=== PATIENT | female | born 1955 | race Caucasian/White ===

== ENCOUNTER → 2016-10-15 | Outpatient (CLI) | payer MEDICAID ==
[~2016-10-15] MED LIST: ACET325T14 PO; BIOTIN PO; CALCIUM PO; DIAZ2TAB3 PO; FAMO-79 PO; GUAI5SYR PO; HYDR-3240 PO; IBUP100T6 PO; IBUP800T PO; IBUPROFEN PO; LORA10TA3 PO; LORA1TAB PO; LORATADINE PO; METO25TA35 PO; MORP30TA PO; MULTIVITAMIN PO; OMEP40CA6 PO; ONDA8TAB9 PO; OXYC1TAB8 PO; PARO10TA3 PO; PEPCID PO; PRED10TA PO; STOOL SOFTENER PO; SUCR1ORA2 PO; TRAM50TA2 PO; VITAMIN D3 PO
== END | disposition home or self-care (01) ==
LOC: PETCFH 13:05
PROVIDERS: ATTEND Internal Medicine Hematology & Oncology
DX: C34.91 Malignant neoplasm of unspecified part of right bronchus or lung (principal); J92.9 Pleural plaque without asbestos
CPT/HCPCS: 78815; A9552

== ENCOUNTER 2016-10-16 09:48 | Day surgery (SDC) | payer MEDICAID ==
[~2016-10-16] VITALS: Ht 167.6 cm; Wt 53.8 kg
[2016-10-16 10:27] VITALS: BP 116/79
[2016-10-16] MEDS ORDERED: SODIUM CHLORIDE 0.9% 1,000 ML IV SCH (10:29)
[2016-10-16] MEDS ORDERED: MIDAZOLAM 1 MG/ML, 5ML ONE (11:14)
[2016-10-16] MEDS ORDERED: FENTANYL PF 100 MCG/2ML ONE (11:14)
[2016-10-16] MEDS ORDERED: NALOXONE 1 MG/ML, 2ML ONE (11:14)
[2016-10-16] MEDS ORDERED: FLUMAZENIL 0.1 MG/1 ML, 5ML ONE (11:15)
[2016-10-16] MEDS ORDERED: LIDOCAINE 1%, 20ML ONE (11:21)
== END 2016-10-16 12:15 ==
LOC: OUT 09:48
PROVIDERS: ATTEND Internal Medicine Hematology & Oncology
DX: R59.9 Enlarged lymph nodes, unspecified (principal); Z85.118 Personal history of other malignant neoplasm of bronchus and lung; Z87.891 Personal history of nicotine dependence
CPT/HCPCS: 38505; 76942; 88305; J3490; J7030; 88341; 88342; J2250; J3010; G0461; J2310

== ENCOUNTER → 2017-04-02 | Outpatient (CLI) | payer MEDICARE, MEDICAID ==
[~2017-04-02] MED LIST changes: +IBUP-1223 PO; -IBUP800T PO; -SUCR1ORA2 PO; +SUCR1ORA5 PO
== END | disposition home or self-care (01) ==
LOC: CFH 15:12
PROVIDERS: ATTEND Nurse Practitioner Primary Care
DX: M48.02 Spinal stenosis, cervical region (principal); M47.22 Other spondylosis with radiculopathy, cervical region; M50.123 Cervical disc disorder at C6-C7 level with radiculopathy
CPT/HCPCS: 72050; 72141

== ENCOUNTER → 2017-06-27 | Outpatient (CLI) | payer MEDICARE, MEDICAID ==
[~2017-06-27] MED LIST changes: +OMNIPAQUE 350 MG/ML, 75ML BOTTLE ONE
== END | disposition home or self-care (01) ==
LOC: CFH 09:20
PROVIDERS: ATTEND Internal Medicine Hematology & Oncology
DX: J90 Pleural effusion, not elsewhere classified (principal); R59.9 Enlarged lymph nodes, unspecified; C34.91 Malignant neoplasm of unspecified part of right bronchus or lung
CPT/HCPCS: 71260; Q9967

== ENCOUNTER → 2017-07-31 | Outpatient (CLI) | payer MEDICARE, MEDICAID ==
[~2017-07-31] MED LIST changes: -OMNIPAQUE 350 MG/ML, 75ML BOTTLE ONE
== END | disposition home or self-care (01) ==
LOC: CFH 13:54
PROVIDERS: ATTEND Nurse Practitioner Critical Care Medicine
DX: M51.26 Other intervertebral disc displacement, lumbar region (principal); M51.37 Other intervertebral disc degeneration, lumbosacral region; M48.061 Spinal stenosis, lumbar region without neurogenic claudication
CPT/HCPCS: 72110; 72158; 82565

== ENCOUNTER → 2018-01-08 | Outpatient (CLI) | payer MEDICARE, MEDICAID ==
[~2018-01-08] MED LIST changes: +OMNIPAQUE 350 MG/ML, 75ML BOTTLE ONE
== END | disposition home or self-care (01) ==
LOC: CFH 08:21
PROVIDERS: ATTEND Internal Medicine Hematology & Oncology
DX: I65.01 Occlusion and stenosis of right vertebral artery (principal); R59.0 Localized enlarged lymph nodes; C34.91 Malignant neoplasm of unspecified part of right bronchus or lung
CPT/HCPCS: 71260; 82565; Q9967

== ENCOUNTER → 2018-02-10 | Outpatient (CLI) | payer MEDICARE, MEDICAID ==
[~2018-02-10] MED LIST changes: +LIDOCAINE-MPF 1%, 5ML ONE; -OMNIPAQUE 350 MG/ML, 75ML BOTTLE ONE
== END | disposition home or self-care (01) ==
LOC: RAD 08:28
PROVIDERS: ATTEND Internal Medicine Hematology & Oncology
DX: C34.91 Malignant neoplasm of unspecified part of right bronchus or lung (principal)
CPT/HCPCS: 32555; 87070; 87077; 87147; 87186; 87205; 88112; 88305

== ENCOUNTER 2018-02-14 10:17 | Inpatient (IN) | payer MEDICARE, MEDICAID ==
[~2018-02-14] VITALS: Ht 165.1 cm; Wt 50.4 kg
[~2018-02-14 10:17] MED LIST changes: -LIDOCAINE-MPF 1%, 5ML ONE
[2018-02-14] MEDS ORDERED: HYDR-3245 PO (11:46)
[2018-02-14] MEDS ORDERED: ATOR-2 PO (11:46)
[2018-02-14] MEDS ORDERED: SODIUM CHLORIDE FLUSH 10ML SYR IVF ONE (12:00)
[2018-02-14] MEDS ORDERED: LIDOCAINE 1%, 10ML INFIL ONE (12:00)
[2018-02-14 12:12] LABS: BASOPHILS # (AUTO) 0.02 x10^3/uL (0-0.1); BASOPHILS % (AUTO) 0 % (0-1); EOSINOPHILS # (AUTO) 0.17 x10^3/uL (0-0.4); EOSINOPHILS % (AUTO) 2 % (1-7); LYMPHOCYTES # (AUTO) 0.38 x10^3/uL (1-3.4); LYMPHOCYTES % (AUTO) 5 % (22-44); MD NO; MEAN CORPUSCULAR HEMOGLOBIN 23.8 pg (27.0-34.8); MEAN CORPUSCULAR HGB CONC 31.6 g/dL (32.4-35.8); MEAN CORPUSCULAR VOLUME 75.5 fL (80-100); MEAN PLATELET VOLUME 7.5 fL (7.4-10.4); MONOCYTES # (AUTO) 0.46 x10^3/uL (0.2-0.8); MONOCYTES % (AUTO) 6 % (2-9); NEUTROPHILS # (AUTO) 6.42 x10^3/uL (1.8-6.8); NEUTROPHILS % (AUTO) 86 % (42-75); PLATELET COUNT 316 x10^3/uL (130-400); RED BLOOD COUNT 4.19 x10^6/uL (3.82-5.3); RED CELL DISTRIBUTION WIDTH 17.7 % (9.6-15.2)
[2018-02-14] MEDS ORDERED: LIDOCAINE-MPF 1%, 5ML ONE (12:12)
[2018-02-14 12:18] LABS: INTERNATIONAL NORMALIZED RATIO 1.08 (0.93-1.1); PROTHROMBIN TIME 11.4 Seconds (9.6-11.5)
[2018-02-14 12:21] LABS: ALBUMIN 2.8 g/dL (3.4-5.0); ANION GAP 10 mmol/L (5-15); CALCIUM 9.5 mg/dL (8.5-10.1); CHLORIDE 105 mmol/L (98-107)
[2018-02-14 12:25] LABS: ALANINE AMINOTRANSFERASE 15 U/L (12-78); ALKALINE PHOSPHATASE 132 U/L (45-117); BILIRUBIN,TOTAL 0.2 mg/dL (0.2-1.0); TOTAL PROTEIN 8.7 g/dL (6.4-8.2)
[2018-02-14] MEDS ORDERED: CEFAZOLIN PMX 1GM/50ML 50 ML IV ONE (14:00)
[2018-02-14] MEDS ORDERED: CEFAZOLIN PMX 1GM/50ML 50 ML ONE (14:38)
[2018-02-14] MEDS ORDERED: BISACODYL 10 MG SUPP PR PRN (15:00)
[2018-02-14] MEDS ORDERED: POLYETHYLENE GLYCOL 17 GM PACKET PO PRN (15:00)
[2018-02-14] MEDS ORDERED: DOCUSATE 100 MG CAPSULE PO PRN (15:00)
[2018-02-14] MEDS ORDERED: ONDANSETRON 2MG/ML, 2ML IVPush PRN (15:00)
[2018-02-14] MEDS ORDERED: ENALAPRILAT 1.25 MG/ML, 2ML IVPush PRN (15:00)
[2018-02-14] MEDS ORDERED: ACETAMINOPHEN 325 MG TABLET PO PRN (15:00)
[2018-02-14] MEDS ORDERED: BIOTIN 3000 MCG PO SCH (16:00)
[2018-02-14] MEDS: SODIUM CHLORIDE 0.9% 1,000 ML IV SCH (16:17)
[2018-02-14] MEDS: HYDROcodone/APAP 10/325 MG TABLET PO SCH ×2 (16:17→20:01)
[2018-02-14 17:24] VITALS: BP 107/74
[2018-02-14] MEDS: CEFAZOLIN PMX 2GM/50ML 50 ML IVPB SCH (17:37)
[2018-02-14] MEDS ORDERED: CEFAZOLIN 2,000 MG in SODIUM CHLORIDE 0.9% 50 ML IV SCH (18:00)
[2018-02-14 19:36] VITALS: BP 110/74
[2018-02-14] MEDS: CALCIUM CARBONATE 500 MG TABLET PO SCH (20:01)
[2018-02-14] MEDS: ATORVASTATIN 80 MG TABLET PO SCH (20:01)
[2018-02-15] MEDS: CEFAZOLIN PMX 2GM/50ML 50 ML IVPB SCH ×3 (01:14→17:00)
[2018-02-15 01:57] VITALS: BP 114/81
[2018-02-15 05:25] LABS: ANION GAP 6 mmol/L (5-15); CALCIUM 9.1 mg/dL (8.5-10.1); CHLORIDE 108 mmol/L (98-107); CREATININE 0.64 mg/dL (0.55-1.02)
[2018-02-15] MEDS: SODIUM CHLORIDE 0.9% 1,000 ML IV SCH (05:40)
[2018-02-15 05:44] LABS: BASOPHILS # (AUTO) 0.01 x10^3/uL (0-0.1); BASOPHILS % (AUTO) 0 % (0-1); EOSINOPHILS # (AUTO) 0.23 x10^3/uL (0-0.4); EOSINOPHILS % (AUTO) 4 % (1-7); LYMPHOCYTES # (AUTO) 0.38 x10^3/uL (1-3.4); LYMPHOCYTES % (AUTO) 7 % (22-44); MD NO; MEAN CORPUSCULAR HEMOGLOBIN 24.5 pg (27.0-34.8); MEAN CORPUSCULAR HGB CONC 32.3 g/dL (32.4-35.8); MEAN CORPUSCULAR VOLUME 75.8 fL (80-100); MEAN PLATELET VOLUME 7.8 fL (7.4-10.4); MONOCYTES # (AUTO) 0.46 x10^3/uL (0.2-0.8); MONOCYTES % (AUTO) 8 % (2-9); NEUTROPHILS % (AUTO) 82 % (42-75); PLATELET COUNT 255 x10^3/uL (130-400); RED BLOOD COUNT 3.73 x10^6/uL (3.82-5.3); RED CELL DISTRIBUTION WIDTH 17.6 % (9.6-15.2)
[2018-02-15 08:13] VITALS: BP 109/73
[2018-02-15] MEDS: HYDROcodone/APAP 10/325 MG TABLET PO SCH (08:20)
[2018-02-15] MEDS: METOPROLOL TARTRATE 25 MG TABLET PO SCH (09:00)
[2018-02-15] MEDS: CALCIUM CARBONATE 500 MG TABLET PO SCH ×2 (09:00→20:02)
[2018-02-15] MEDS: CHOLECALCIFEROL 1,000 UNIT TABLET PO SCH ×2 (09:00→20:02)
[2018-02-15] MEDS ORDERED: MIDAZOLAM 1 MG/ML, 2ML ONE (10:27)
[2018-02-15] MEDS ORDERED: FENTANYL PF 100 MCG/2ML ONE ×2 (10:27→14:27)
[2018-02-15] MEDS ORDERED: BUPIVACAINE/PF-EPI 0.5% 1:200K ONE (11:51)
[2018-02-15] MEDS ORDERED: BALANCED SALT OPHTH IRRIG SOLN 18ML ONE (12:14)
[2018-02-15] MEDS ORDERED: SUCCINYLCHOLINE 20 MG/ML, 10ML ONE (12:58)
[2018-02-15] MEDS ORDERED: PROPOFOL 10 MG/ML, 20ML ONE (12:58)
[2018-02-15] MEDS ORDERED: ROCURONIUM 10MG/ML,5ML ONE (12:58)
[2018-02-15] MEDS ORDERED: SUGAMMADEX 200 MG/2 ML IVPush ONE (13:27)
[2018-02-15] MEDS ORDERED: OXYcodone 5 MG/5 ML ORAL.SOL UDC ONE ×2 (13:45→14:17)
[2018-02-15] MEDS ORDERED: HYDROmorphone 2 MG/ML, 1ML ONE ×2 (13:45→17:04)
[2018-02-15] MEDS: HYDROmorphone 1 MG/ML, 1ML IV PRN ×4 (13:50→14:22)
[2018-02-15] MEDS: OXYcodone 5 MG/5 ML ORAL.SOL UDC PO PRN ×2 (13:55→14:20)
[2018-02-15] MEDS ORDERED: hydrALAzine 20 MG/ML, 1ML IV PRN (14:00)
[2018-02-15] MEDS ORDERED: ONDANSETRON ODT 8 MG PO PRN (14:00)
[2018-02-15] MEDS ORDERED: ONDANSETRON 2MG/ML, 2ML IV PRN (14:00)
[2018-02-15] MEDS ORDERED: LABETALOL 5MG/ML, 20ML IV PRN (14:00)
[2018-02-15] MEDS ORDERED: FENTANYL PF 100 MCG/2ML IV PRN (14:00)
[2018-02-15] MEDS ORDERED: PROMETHAZINE 12.5 MG SUPP PR PRN (14:00)
[2018-02-15] MEDS ORDERED: HYDROmorphone 1 MG/ML, 1ML IV PRN (14:00)
[2018-02-15] MEDS: OXYcodone IR 5MG TABLET PO PRN (18:20)
[2018-02-15 19:44] VITALS: BP 105/72
[2018-02-15] MEDS: ATORVASTATIN 80 MG TABLET PO SCH (20:02)
[2018-02-15] MEDS: HYDROmorphone 2 MG/ML, 1ML IV PRN (20:02)
[2018-02-16] MEDS: HYDROmorphone 2 MG/ML, 1ML IV PRN ×5 (00:51→21:00)
[2018-02-16] MEDS: CEFAZOLIN PMX 2GM/50ML 50 ML IVPB SCH ×3 (00:51→17:13)
[2018-02-16 01:40] VITALS: BP 112/74
[2018-02-16 06:07] LABS: ANION GAP 8 mmol/L (5-15); CALCIUM 8.6 mg/dL (8.5-10.1); CHLORIDE 107 mmol/L (98-107)
[2018-02-16 06:08] LABS: CREATININE 0.67 mg/dL (0.55-1.02)
[2018-02-16 06:32] LABS: BASOPHILS # (AUTO) 0.02 x10^3/uL (0-0.1); BASOPHILS % (AUTO) 0 % (0-1); EOSINOPHILS # (AUTO) 0.17 x10^3/uL (0-0.4); EOSINOPHILS % (AUTO) 4 % (1-7); LYMPHOCYTES # (AUTO) 0.31 x10^3/uL (1-3.4); LYMPHOCYTES % (AUTO) 7 % (22-44); MD NO; MEAN CORPUSCULAR HEMOGLOBIN 23.3 pg (27.0-34.8); MEAN CORPUSCULAR HGB CONC 31.5 g/dL (32.4-35.8); MEAN CORPUSCULAR VOLUME 73.9 fL (80-100); MEAN PLATELET VOLUME 7.8 fL (7.4-10.4); MONOCYTES # (AUTO) 0.41 x10^3/uL (0.2-0.8); MONOCYTES % (AUTO) 9 % (2-9); NEUTROPHILS % (AUTO) 81 % (42-75); PLATELET COUNT 243 x10^3/uL (130-400); RED BLOOD COUNT 3.58 x10^6/uL (3.82-5.3); RED CELL DISTRIBUTION WIDTH 17.7 % (9.6-15.2)
[2018-02-16] MEDS: CALCIUM CARBONATE 500 MG TABLET PO SCH ×2 (07:56→21:00)
[2018-02-16] MEDS: CHOLECALCIFEROL 1,000 UNIT TABLET PO SCH ×2 (07:56→21:00)
[2018-02-16 07:59] VITALS: BP 123/76
[2018-02-16] MEDS: METOPROLOL TARTRATE 25 MG TABLET PO SCH (08:03)
[2018-02-16] MEDS: HYDROcodone/APAP 10/325 MG TABLET PO SCH ×3 (09:38→21:56)
[2018-02-16] MEDS: OXYcodone IR 5MG TABLET PO PRN ×3 (12:48→23:42)
[2018-02-16 14:51] VITALS: BP 109/69
[2018-02-16] MEDS ORDERED: PNEUMOC 13-VALENT VACC, 0.5 ML IM-VACC ONE (19:00)
[2018-02-16 19:37] VITALS: BP 106/70
[2018-02-16] MEDS: ATORVASTATIN 80 MG TABLET PO SCH (21:00)
[2018-02-17] MEDS: CEFAZOLIN PMX 2GM/50ML 50 ML IVPB SCH ×3 (01:06→17:49)
[2018-02-17] MEDS: OXYcodone IR 5MG TABLET PO PRN ×3 (03:46→19:42)
[2018-02-17 03:52] VITALS: BP 108/67
[2018-02-17 06:06] LABS: HCT (SEDRATE) 25.3 % (34.6-47.8)
[2018-02-17 06:08] LABS: BASOPHILS # (AUTO) 0.02 x10^3/uL (0-0.1); BASOPHILS % (AUTO) 0 % (0-1); EOSINOPHILS # (AUTO) 0.21 x10^3/uL (0-0.4); EOSINOPHILS % (AUTO) 4 % (1-7); LYMPHOCYTES % (AUTO) 5 % (22-44); MD NO; MEAN CORPUSCULAR HEMOGLOBIN 24.1 pg (27.0-34.8); MEAN CORPUSCULAR HGB CONC 32.2 g/dL (32.4-35.8); MEAN CORPUSCULAR VOLUME 74.9 fL (80-100); MEAN PLATELET VOLUME 7.4 fL (7.4-10.4); MONOCYTES # (AUTO) 0.47 x10^3/uL (0.2-0.8); MONOCYTES % (AUTO) 8 % (2-9); NEUTROPHILS # (AUTO) 4.74 x10^3/uL (1.8-6.8); NEUTROPHILS % (AUTO) 83 % (42-75); PLATELET COUNT 258 x10^3/uL (130-400); RED BLOOD COUNT 3.46 x10^6/uL (3.82-5.3)
[2018-02-17 06:13] LABS: ANION GAP 6 mmol/L (5-15); CALCIUM 8.5 mg/dL (8.5-10.1); CHLORIDE 106 mmol/L (98-107); CREATININE 0.61 mg/dL (0.55-1.02)
[2018-02-17 07:25] VITALS: BP 117/79
[2018-02-17] MEDS: HYDROmorphone 2 MG/ML, 1ML IV PRN ×2 (07:54→11:20)
[2018-02-17] MEDS: METOPROLOL TARTRATE 25 MG TABLET PO SCH (07:55)
[2018-02-17] MEDS: CALCIUM CARBONATE 500 MG TABLET PO SCH ×2 (07:55→21:28)
[2018-02-17] MEDS: CHOLECALCIFEROL 1,000 UNIT TABLET PO SCH ×2 (07:55→21:28)
[2018-02-17] MEDS ORDERED: METHYLNALTREXONE 12 MG/0.6 ML SQ SCH (08:30)
[2018-02-17] MEDS ORDERED: LACTULOSE 20 GM/30 ML UDC PO PRN (08:30)
[2018-02-17] MEDS: HYDROcodone/APAP 10/325 MG TABLET PO SCH ×3 (09:57→21:27)
[2018-02-17 13:33] VITALS: BP 130/51
[2018-02-17 19:31] VITALS: BP 108/70
[2018-02-17] MEDS: ATORVASTATIN 80 MG TABLET PO SCH (21:28)
[2018-02-18] MEDS: CEFAZOLIN PMX 2GM/50ML 50 ML IVPB SCH ×3 (02:07→17:35)
[2018-02-18] MEDS: OXYcodone IR 5MG TABLET PO PRN ×2 (02:27→10:42)
[2018-02-18 02:30] VITALS: BP 98/66
[2018-02-18] MEDS: HYDROmorphone 2 MG/ML, 1ML IV PRN ×2 (04:32→13:34)
[2018-02-18 04:33] LABS: BASOPHILS # (AUTO) 0.02 x10^3/uL (0-0.1); BASOPHILS % (AUTO) 0 % (0-1); EOSINOPHILS # (AUTO) 0.25 x10^3/uL (0-0.4); EOSINOPHILS % (AUTO) 5 % (1-7); LYMPHOCYTES # (AUTO) 0.38 x10^3/uL (1-3.4); LYMPHOCYTES % (AUTO) 7 % (22-44); MD NO; MEAN CORPUSCULAR HEMOGLOBIN 23.6 pg (27.0-34.8); MEAN CORPUSCULAR HGB CONC 31.7 g/dL (32.4-35.8); MEAN CORPUSCULAR VOLUME 74.4 fL (80-100); MEAN PLATELET VOLUME 7.7 fL (7.4-10.4); MONOCYTES # (AUTO) 0.47 x10^3/uL (0.2-0.8); MONOCYTES % (AUTO) 9 % (2-9); NEUTROPHILS # (AUTO) 4.07 x10^3/uL (1.8-6.8); NEUTROPHILS % (AUTO) 79 % (42-75); PLATELET COUNT 256 x10^3/uL (130-400); RED BLOOD COUNT 3.55 x10^6/uL (3.82-5.3); RED CELL DISTRIBUTION WIDTH 18.2 % (9.6-15.2)
[2018-02-18 04:47] LABS: ANION GAP 8 mmol/L (5-15); CALCIUM 9.2 mg/dL (8.5-10.1); CHLORIDE 106 mmol/L (98-107)
[2018-02-18 04:50] LABS: CREATININE 0.61 mg/dL (0.55-1.02)
[2018-02-18 07:43] VITALS: BP 100/74
[2018-02-18] MEDS: CHOLECALCIFEROL 1,000 UNIT TABLET PO SCH (08:38)
[2018-02-18] MEDS: METOPROLOL TARTRATE 25 MG TABLET PO SCH (08:38)
[2018-02-18] MEDS: CALCIUM CARBONATE 500 MG TABLET PO SCH (08:39)
[2018-02-18] MEDS: HYDROcodone/APAP 10/325 MG TABLET PO SCH ×2 (08:39→15:36)
[2018-02-18] MEDS ORDERED: PINK LADY ENEMA 490 ML BOTTLE PR ONE (09:30)
[2018-02-18 13:17] VITALS: BP 121/72
[2018-02-18] MEDS ORDERED: CEFA2PIG IV (14:17)
== END 2018-02-18 18:05 | DRG 856 ==
LOC: ED 12:45 → 3NW 14:10
PROVIDERS: ADMIT Internal Medicine; ATTEND Internal Medicine
PROC: 0J960ZZ Drainage of Chest Subcutaneous Tissue and Fascia, Open Approach (ICD-10-PCS; 2018-02-14)
PROC: 0W983ZZ Drainage of Chest Wall, Percutaneous Approach (ICD-10-PCS; 2018-02-14)
PROC: 0W9900Z Drainage of Right Pleural Cavity with Drainage Device, Open Approach (ICD-10-PCS; principal; 2018-02-15 11:30)
PROC: 02HV33Z Insertion of Infusion Device into Superior Vena Cava, Percutaneous Approach (ICD-10-PCS; 2018-02-18)
PROC: B5181ZA Fluoroscopy of Superior Vena Cava using Low Osmolar Contrast, Guidance (ICD-10-PCS; 2018-02-18)
PROC: B548ZZA Ultrasonography of Superior Vena Cava, Guidance (ICD-10-PCS; 2018-02-18)
DX: T81.43XA Infection following a procedure, organ and space surgical site, initial encounter (principal); R53.2 Functional quadriplegia; E44.1 Mild protein-calorie malnutrition; J93.9 Pneumothorax, unspecified; Z68.1 Body mass index [BMI] 19.9 or less, adult; I11.9 Hypertensive heart disease without heart failure; K59.00 Constipation, unspecified; D64.9 Anemia, unspecified; E78.5 Hyperlipidemia, unspecified; G89.29 Other chronic pain; E78.00 Pure hypercholesterolemia, unspecified; I48.91 Unspecified atrial fibrillation; B95.61 Methicillin susceptible Staphylococcus aureus infection as the cause of diseases classified elsewhere; Y83.8 Other surgical procedures as the cause of abnormal reaction of the patient, or of later complication, without mention of misadventure at the time of the procedure; Z85.118 Personal history of other malignant neoplasm of bronchus and lung; Z87.891 Personal history of nicotine dependence; Z92.21 Personal history of antineoplastic chemotherapy; Z92.3 Personal history of irradiation; Z90.2 Acquired absence of lung [part of]; Z79.899 Other long term (current) drug therapy; Z82.3 Family history of stroke; Y92.89 Other specified places as the place of occurrence of the external cause; B95.62 Methicillin resistant Staphylococcus aureus infection as the cause of diseases classified elsewhere
CPT/HCPCS: 10060; 36415; 36569; 71045; 71260; 76937; 77001; 80048; 80053; 83605; 84145; 85025; 85610; 85651; 85730; 86140; 87040; 87070; 87075; 87076; 87077; 87147; 87186; 87205; 99283; C1729; G0378; J0690; J1170; J2250; J2405; J2704; J3010; C1751; G0009; J0330; J7030

== ENCOUNTER 2018-02-28 15:07 | Inpatient (IN) | payer MEDICARE, MEDICAID ==
[~2018-02-28] VITALS: Ht 162.6 cm; Wt 51.9 kg
[~2018-02-28 15:07] MED LIST changes: +ATOR-2 PO; +CEFA2PIG IV; +HYDR-3245 PO; +LORA-247 PO; -LORA10TA3 PO
[2018-02-28 17:00] VITALS: BP 117/74
[2018-02-28] MEDS ORDERED: MAGNESIUM HYDROXIDE 8%, 30ML UDC PO PRN (17:30)
[2018-02-28] MEDS ORDERED: PROMETHAZINE 12.5 MG SUPP PR ONE (17:30)
[2018-02-28] MEDS ORDERED: POLYETHYLENE GLYCOL 17 GM PACKET NG PRN (17:30)
[2018-02-28] MEDS ORDERED: OXYcodone IR 5MG TABLET PO PRN (17:30)
[2018-02-28] MEDS ORDERED: ONDANSETRON ODT 4 MG PO PRN (17:30)
[2018-02-28] MEDS ORDERED: BISACODYL 10 MG SUPP PR PRN (17:30)
[2018-02-28] MEDS ORDERED: ENALAPRILAT 1.25 MG/ML, 2ML IVPush PRN (17:30)
[2018-02-28] MEDS ORDERED: ONDANSETRON 2MG/ML, 2ML IVPush PRN (18:00)
[2018-02-28] MEDS ORDERED: PLEASE ENTER HEIGHT AND WEIGHT MC SCH (18:00)
[2018-02-28 19:06] LABS: INTERNATIONAL NORMALIZED RATIO 1.08 (0.93-1.1); PROTHROMBIN TIME 11.4 Seconds (9.6-11.5)
[2018-02-28 20:22] VITALS: BP 96/66
[2018-02-28] MEDS: SODIUM CHLORIDE FLUSH 10ML SYR IVF SCH (21:00)
[2018-02-28] MEDS ORDERED: HYDROmorphone 2 MG/ML, 1ML ONE (21:38)
[2018-02-28] MEDS: ATORVASTATIN 80 MG TABLET PO SCH (21:44)
[2018-02-28] MEDS: CALCIUM CARBONATE 500 MG TAB.CHEW PO SCH (21:44)
[2018-02-28] MEDS: HYDROmorphone 1 MG/ML, 1ML IV PRN (21:44)
[2018-02-28] MEDS: CHOLECALCIFEROL 400 UNITS TABLET PO SCH (21:50)
[2018-02-28] MEDS ORDERED: CEFAZOLIN 2,000 MG in SODIUM CHLORIDE 0.9% 50 ML IV SCH (22:00)
[2018-03-01 01:20] VITALS: BP 129/84
[2018-03-01] MEDS ORDERED: HYDROmorphone 2 MG/ML, 1ML ONE ×6 (04:43→18:41)
[2018-03-01] MEDS: HYDROmorphone 1 MG/ML, 1ML IV PRN ×6 (04:45→18:45)
[2018-03-01 05:39] LABS: BASOPHILS # (AUTO) 0.01 x10^3/uL (0-0.1); BASOPHILS % (AUTO) 0 % (0-1); EOSINOPHILS # (AUTO) 0.29 x10^3/uL (0-0.4); EOSINOPHILS % (AUTO) 7 % (1-7); LYMPHOCYTES # (AUTO) 0.27 x10^3/uL (1-3.4); LYMPHOCYTES % (AUTO) 7 % (22-44); MD NO; MEAN CORPUSCULAR HEMOGLOBIN 24.3 pg (27.0-34.8); MEAN CORPUSCULAR HGB CONC 31.6 g/dL (32.4-35.8); MEAN PLATELET VOLUME 8.5 fL (7.4-10.4); MONOCYTES # (AUTO) 0.35 x10^3/uL (0.2-0.8); MONOCYTES % (AUTO) 9 % (2-9); NEUTROPHILS # (AUTO) 3.23 x10^3/uL (1.8-6.8); NEUTROPHILS % (AUTO) 78 % (42-75); PLATELET COUNT 234 x10^3/uL (130-400); RED BLOOD COUNT 3.36 x10^6/uL (3.82-5.3); RED CELL DISTRIBUTION WIDTH 18.8 % (9.6-15.2)
[2018-03-01 05:40] LABS: CHLORIDE 107 mmol/L (98-107)
[2018-03-01 05:47] LABS: ALANINE AMINOTRANSFERASE 9 U/L (12-78); ALBUMIN 2.4 g/dL (3.4-5.0); ALKALINE PHOSPHATASE 108 U/L (45-117); ANION GAP 6 mmol/L (5-15); BILIRUBIN,TOTAL 0.2 mg/dL (0.2-1.0); CALCIUM 9.2 mg/dL (8.5-10.1); CREATININE 0.52 mg/dL (0.55-1.02); TOTAL PROTEIN 7.3 g/dL (6.4-8.2)
[2018-03-01] MEDS: CEFAZOLIN PMX 2GM/50ML 50 ML IVPB SCH ×3 (06:26→23:00)
[2018-03-01 08:36] VITALS: BP 121/82
[2018-03-01] MEDS: METOPROLOL TARTRATE 25 MG TABLET PO SCH (09:08)
[2018-03-01] MEDS: CALCIUM CARBONATE 500 MG TAB.CHEW PO SCH ×2 (09:09→20:13)
[2018-03-01] MEDS: CHOLECALCIFEROL 400 UNITS TABLET PO SCH ×2 (09:09→20:13)
[2018-03-01] MEDS: SENNA/DOCUSATE TABLET PO SCH (09:09)
[2018-03-01] MEDS: SODIUM CHLORIDE FLUSH 10ML SYR IVF SCH ×2 (09:09→21:00)
[2018-03-01] MEDS: METHYLNALTREXONE 12 MG/0.6 ML SQ SCH (09:10)
[2018-03-01 13:08] VITALS: BP 122/78
[2018-03-01] MEDS ORDERED: NALOXONE 1 MG/ML, 2ML ONE (13:22)
[2018-03-01] MEDS ORDERED: FENTANYL PF 100 MCG/2ML ONE (13:22)
[2018-03-01] MEDS ORDERED: FLUMAZENIL 0.1 MG/1 ML, 5ML ONE (13:22)
[2018-03-01] MEDS ORDERED: MIDAZOLAM 1 MG/ML, 5ML ONE (13:22)
[2018-03-01] MEDS ORDERED: LIDOCAINE-MPF 1%, 5ML ONE (13:37)
[2018-03-01 19:14] VITALS: BP 108/72
[2018-03-01] MEDS: ATORVASTATIN 80 MG TABLET PO SCH (20:13)
[2018-03-02 00:03] VITALS: BP 136/82
[2018-03-02] MEDS ORDERED: HYDROmorphone 2 MG/ML, 1ML ONE ×3 (00:12→07:15)
[2018-03-02] MEDS: HYDROmorphone 1 MG/ML, 1ML IV PRN ×3 (00:15→07:19)
[2018-03-02] MEDS ORDERED: CATHFLO-ALTEPLASE 2 MG/2 ML CATHFLUSH ONE (05:00)
[2018-03-02 05:41] LABS: BASOPHILS # (AUTO) 0.02 x10^3/uL (0-0.1); BASOPHILS % (AUTO) 0 % (0-1); EOSINOPHILS # (AUTO) 0.25 x10^3/uL (0-0.4); EOSINOPHILS % (AUTO) 5 % (1-7); LYMPHOCYTES # (AUTO) 0.33 x10^3/uL (1-3.4); LYMPHOCYTES % (AUTO) 7 % (22-44); MD NO; MEAN CORPUSCULAR HEMOGLOBIN 24.2 pg (27.0-34.8); MEAN CORPUSCULAR HGB CONC 31.4 g/dL (32.4-35.8); MEAN CORPUSCULAR VOLUME 77.1 fL (80-100); MEAN PLATELET VOLUME 8.5 fL (7.4-10.4); MONOCYTES # (AUTO) 0.35 x10^3/uL (0.2-0.8); MONOCYTES % (AUTO) 8 % (2-9); NEUTROPHILS # (AUTO) 3.71 x10^3/uL (1.8-6.8); NEUTROPHILS % (AUTO) 80 % (42-75); PLATELET COUNT 230 x10^3/uL (130-400); RED CELL DISTRIBUTION WIDTH 18.9 % (9.6-15.2)
[2018-03-02 05:54] LABS: ANION GAP 7 mmol/L (5-15); CALCIUM 9.1 mg/dL (8.5-10.1); CHLORIDE 108 mmol/L (98-107); CREATININE 0.54 mg/dL (0.55-1.02)
[2018-03-02] MEDS: CEFAZOLIN PMX 2GM/50ML 50 ML IVPB SCH ×3 (06:30→22:51)
[2018-03-02 07:02] VITALS: BP 126/81
[2018-03-02] MEDS: SENNA/DOCUSATE TABLET PO SCH (08:28)
[2018-03-02] MEDS: METOPROLOL TARTRATE 25 MG TABLET PO SCH (08:28)
[2018-03-02] MEDS: CALCIUM CARBONATE 500 MG TAB.CHEW PO SCH ×2 (08:28→21:29)
[2018-03-02] MEDS: SODIUM CHLORIDE FLUSH 10ML SYR IVF SCH ×2 (08:32→21:00)
[2018-03-02] MEDS: ENOXAPARIN 40 MG/0.4 ML SQ SCH (08:32)
[2018-03-02] MEDS: CHOLECALCIFEROL 400 UNITS TABLET PO SCH ×2 (08:32→21:29)
[2018-03-02] MEDS ORDERED: OXYcodone IR 5MG TABLET ONE (10:57)
[2018-03-02] MEDS: OXYcodone IR 5MG TABLET PO PRN ×3 (10:59→19:17)
[2018-03-02 13:17] VITALS: BP 107/74
[2018-03-02] MEDS: GABAPENTIN 100 MG CAPSULE PO SCH ×2 (15:14→21:28)
[2018-03-02 20:06] VITALS: BP 93/72
[2018-03-02] MEDS: ATORVASTATIN 80 MG TABLET PO SCH (21:28)
[2018-03-03] MEDS: OXYcodone IR 5MG TABLET PO PRN ×5 (00:27→20:28)
[2018-03-03 02:08] VITALS: BP 114/72
[2018-03-03 05:23] LABS: BASOPHILS # (AUTO) 0.02 x10^3/uL (0-0.1); BASOPHILS % (AUTO) 1 % (0-1); CHLORIDE 109 mmol/L (98-107); EOSINOPHILS # (AUTO) 0.25 x10^3/uL (0-0.4); EOSINOPHILS % (AUTO) 7 % (1-7); LYMPHOCYTES # (AUTO) 0.35 x10^3/uL (1-3.4); LYMPHOCYTES % (AUTO) 10 % (22-44); MD NO; MEAN CORPUSCULAR HEMOGLOBIN 24.2 pg (27.0-34.8); MEAN CORPUSCULAR HGB CONC 31.6 g/dL (32.4-35.8); MEAN CORPUSCULAR VOLUME 76.4 fL (80-100); MEAN PLATELET VOLUME 8.5 fL (7.4-10.4); MONOCYTES # (AUTO) 0.33 x10^3/uL (0.2-0.8); MONOCYTES % (AUTO) 9 % (2-9); NEUTROPHILS % (AUTO) 73 % (42-75); PLATELET COUNT 220 x10^3/uL (130-400); RED BLOOD COUNT 3.41 x10^6/uL (3.82-5.3)
[2018-03-03 05:36] LABS: ALANINE AMINOTRANSFERASE 7 U/L (12-78); ALBUMIN 2.4 g/dL (3.4-5.0); ALKALINE PHOSPHATASE 101 U/L (45-117); ANION GAP 7 mmol/L (5-15); BILIRUBIN,TOTAL 0.2 mg/dL (0.2-1.0); CALCIUM 8.8 mg/dL (8.5-10.1); CREATININE 0.48 mg/dL (0.55-1.02); TOTAL PROTEIN 7.2 g/dL (6.4-8.2)
[2018-03-03] MEDS: CEFAZOLIN PMX 2GM/50ML 50 ML IVPB SCH ×3 (06:37→23:39)
[2018-03-03 07:09] VITALS: BP 102/70
[2018-03-03] MEDS: SENNA/DOCUSATE TABLET PO SCH (07:32)
[2018-03-03] MEDS: METOPROLOL TARTRATE 25 MG TABLET PO SCH (07:33)
[2018-03-03] MEDS: CHOLECALCIFEROL 400 UNITS TABLET PO SCH ×2 (07:33→20:28)
[2018-03-03] MEDS: GABAPENTIN 100 MG CAPSULE PO SCH ×3 (07:33→20:28)
[2018-03-03] MEDS: CALCIUM CARBONATE 500 MG TAB.CHEW PO SCH ×2 (07:33→20:28)
[2018-03-03] MEDS ORDERED: HYDROmorphone 2 MG/ML, 1ML ONE (09:26)
[2018-03-03] MEDS: SODIUM CHLORIDE FLUSH 10ML SYR IVF SCH ×2 (09:29→20:29)
[2018-03-03] MEDS: HYDROmorphone 1 MG/ML, 1ML IV PRN (09:35)
[2018-03-03] MEDS: ENOXAPARIN 40 MG/0.4 ML SQ SCH (09:41)
[2018-03-03] MEDS: METHYLNALTREXONE 12 MG/0.6 ML SQ SCH (10:06)
[2018-03-03 12:18] VITALS: BP 108/74
[2018-03-03 20:00] VITALS: BP 105/61
[2018-03-03] MEDS: ATORVASTATIN 80 MG TABLET PO SCH (20:28)
[2018-03-04] MEDS: OXYcodone IR 5MG TABLET PO PRN ×6 (00:18→23:53)
[2018-03-04 02:11] VITALS: BP 115/78
[2018-03-04 06:08] LABS: BASOPHILS # (AUTO) 0.02 x10^3/uL (0-0.1); BASOPHILS % (AUTO) 1 % (0-1); EOSINOPHILS # (AUTO) 0.26 x10^3/uL (0-0.4); EOSINOPHILS % (AUTO) 6 % (1-7); LYMPHOCYTES # (AUTO) 0.39 x10^3/uL (1-3.4); LYMPHOCYTES % (AUTO) 9 % (22-44); MD NO; MEAN CORPUSCULAR HEMOGLOBIN 23.8 pg (27.0-34.8); MEAN CORPUSCULAR HGB CONC 30.8 g/dL (32.4-35.8); MEAN CORPUSCULAR VOLUME 77.2 fL (80-100); MEAN PLATELET VOLUME 8.2 fL (7.4-10.4); MONOCYTES # (AUTO) 0.44 x10^3/uL (0.2-0.8); MONOCYTES % (AUTO) 11 % (2-9); NEUTROPHILS # (AUTO) 3.01 x10^3/uL (1.8-6.8); NEUTROPHILS % (AUTO) 73 % (42-75); PLATELET COUNT 234 x10^3/uL (130-400); RED BLOOD COUNT 3.62 x10^6/uL (3.82-5.3); RED CELL DISTRIBUTION WIDTH 19.5 % (9.6-15.2)
[2018-03-04 06:30] LABS: CHLORIDE 105 mmol/L (98-107)
[2018-03-04 06:37] LABS: ANION GAP 8 mmol/L (5-15); CALCIUM 9.3 mg/dL (8.5-10.1); CREATININE 0.61 mg/dL (0.55-1.02)
[2018-03-04] MEDS: CEFAZOLIN PMX 2GM/50ML 50 ML IVPB SCH ×3 (06:47→21:46)
[2018-03-04 07:22] VITALS: BP 100/70
[2018-03-04] MEDS: GABAPENTIN 100 MG CAPSULE PO SCH ×3 (08:44→21:34)
[2018-03-04] MEDS: SENNA/DOCUSATE TABLET PO SCH (08:44)
[2018-03-04] MEDS: METOPROLOL TARTRATE 25 MG TABLET PO SCH (08:44)
[2018-03-04] MEDS: CALCIUM CARBONATE 500 MG TAB.CHEW PO SCH ×2 (08:44→21:34)
[2018-03-04] MEDS: ENOXAPARIN 40 MG/0.4 ML SQ SCH (08:45)
[2018-03-04] MEDS: CHOLECALCIFEROL 400 UNITS TABLET PO SCH ×2 (08:53→21:34)
[2018-03-04] MEDS: SODIUM CHLORIDE FLUSH 10ML SYR IVF SCH ×2 (09:26→21:33)
[2018-03-04] MEDS ORDERED: CEFAZOLIN 1,000 MG IVPB SCH (11:30)
[2018-03-04 12:32] VITALS: BP 115/72
[2018-03-04] MEDS ORDERED: CEFAZOLIN PMX 2GM/50ML 50 ML IVPB SCH (15:00)
[2018-03-04] MEDS: CEFAZOLIN PMX 1GM/50ML 50 ML IVPB SCH ×2 (15:04→23:46)
[2018-03-04] MEDS: ACETAMINOPHEN 325 MG TABLET PO PRN ×2 (19:43→23:53)
[2018-03-04 20:15] VITALS: BP 108/72
[2018-03-04] MEDS: ATORVASTATIN 80 MG TABLET PO SCH (21:34)
[2018-03-05 02:14] VITALS: BP 102/66
[2018-03-05] MEDS: CEFAZOLIN PMX 2GM/50ML 50 ML IVPB SCH ×3 (05:02→21:34)
[2018-03-05] MEDS: ACETAMINOPHEN 325 MG TABLET PO PRN ×2 (05:10→21:35)
[2018-03-05] MEDS: OXYcodone IR 5MG TABLET PO PRN ×5 (05:10→21:35)
[2018-03-05 05:18] LABS: BASOPHILS # (AUTO) 0.01 x10^3/uL (0-0.1); BASOPHILS % (AUTO) 1 % (0-1); EOSINOPHILS # (AUTO) 0.29 x10^3/uL (0-0.4); EOSINOPHILS % (AUTO) 9 % (1-7); LYMPHOCYTES % (AUTO) 13 % (22-44); MD NO; MEAN CORPUSCULAR HEMOGLOBIN 24.1 pg (27.0-34.8); MEAN CORPUSCULAR HGB CONC 31.4 g/dL (32.4-35.8); MEAN CORPUSCULAR VOLUME 76.8 fL (80-100); MEAN PLATELET VOLUME 8.2 fL (7.4-10.4); MONOCYTES # (AUTO) 0.35 x10^3/uL (0.2-0.8); MONOCYTES % (AUTO) 11 % (2-9); NEUTROPHILS # (AUTO) 2.05 x10^3/uL (1.8-6.8); NEUTROPHILS % (AUTO) 66 % (42-75); PLATELET COUNT 216 x10^3/uL (130-400); RED BLOOD COUNT 3.41 x10^6/uL (3.82-5.3); RED CELL DISTRIBUTION WIDTH 19.3 % (9.6-15.2)
[2018-03-05 05:35] LABS: ANION GAP 6 mmol/L (5-15); CALCIUM 9.3 mg/dL (8.5-10.1); CHLORIDE 108 mmol/L (98-107); CREATININE 0.53 mg/dL (0.55-1.02)
[2018-03-05 08:07] VITALS: BP 101/72
[2018-03-05] MEDS: CEFAZOLIN PMX 1GM/50ML 50 ML IVPB SCH ×3 (08:17→23:56)
[2018-03-05] MEDS: CALCIUM CARBONATE 500 MG TAB.CHEW PO SCH ×2 (09:05→21:35)
[2018-03-05] MEDS: SENNA/DOCUSATE TABLET PO SCH (09:05)
[2018-03-05] MEDS: CHOLECALCIFEROL 400 UNITS TABLET PO SCH ×2 (09:06→21:35)
[2018-03-05] MEDS: METOPROLOL TARTRATE 25 MG TABLET PO SCH (09:07)
[2018-03-05] MEDS: GABAPENTIN 100 MG CAPSULE PO SCH ×3 (09:07→21:35)
[2018-03-05] MEDS: METHYLNALTREXONE 12 MG/0.6 ML SQ SCH (09:08)
[2018-03-05] MEDS: ENOXAPARIN 40 MG/0.4 ML SQ SCH (09:08)
[2018-03-05] MEDS: SODIUM CHLORIDE FLUSH 10ML SYR IVF SCH ×2 (09:09→21:34)
[2018-03-05] MEDS ORDERED: HYDROmorphone 2 MG/ML, 1ML ONE (13:09)
[2018-03-05] MEDS: HYDROmorphone 1 MG/ML, 1ML IV PRN (13:12)
[2018-03-05 14:26] VITALS: BP 97/63
[2018-03-05 18:42] VITALS: BP 106/71
[2018-03-05] MEDS: ATORVASTATIN 80 MG TABLET PO SCH (21:34)
[2018-03-06 00:53] VITALS: BP 111/75
[2018-03-06] MEDS: OXYcodone IR 5MG TABLET PO PRN ×4 (04:22→20:00)
[2018-03-06] MEDS: ACETAMINOPHEN 325 MG TABLET PO PRN ×2 (04:24→20:00)
[2018-03-06] MEDS: CEFAZOLIN PMX 2GM/50ML 50 ML IVPB SCH ×3 (04:26→20:53)
[2018-03-06 06:58] VITALS: BP 106/66
[2018-03-06] MEDS: CALCIUM CARBONATE 500 MG TAB.CHEW PO SCH ×2 (08:14→20:00)
[2018-03-06] MEDS: METOPROLOL TARTRATE 25 MG TABLET PO SCH (08:14)
[2018-03-06] MEDS: CEFAZOLIN PMX 1GM/50ML 50 ML IVPB SCH ×2 (08:14→16:32)
[2018-03-06] MEDS: SODIUM CHLORIDE FLUSH 10ML SYR IVF SCH ×2 (08:15→20:53)
[2018-03-06] MEDS: SENNA/DOCUSATE TABLET PO SCH (08:15)
[2018-03-06] MEDS: GABAPENTIN 100 MG CAPSULE PO SCH ×3 (08:15→20:00)
[2018-03-06] MEDS: ENOXAPARIN 40 MG/0.4 ML SQ SCH (08:15)
[2018-03-06] MEDS: CHOLECALCIFEROL 400 UNITS TABLET PO SCH ×2 (08:31→20:53)
[2018-03-06 13:04] VITALS: BP 128/82
[2018-03-06 19:09] VITALS: BP 128/74
[2018-03-06] MEDS: ATORVASTATIN 80 MG TABLET PO SCH (20:00)
[2018-03-07] MEDS: OXYcodone IR 5MG TABLET PO PRN ×5 (00:19→21:31)
[2018-03-07] MEDS: ACETAMINOPHEN 325 MG TABLET PO PRN ×2 (00:19→05:02)
[2018-03-07] MEDS: CEFAZOLIN PMX 1GM/50ML 50 ML IVPB SCH ×4 (00:20→23:51)
[2018-03-07 01:17] VITALS: BP 103/68
[2018-03-07] MEDS: CEFAZOLIN PMX 2GM/50ML 50 ML IVPB SCH ×3 (04:51→20:42)
[2018-03-07 05:17] LABS: MEAN CORPUSCULAR HEMOGLOBIN 24.5 pg (27.0-34.8); MEAN CORPUSCULAR HGB CONC 31.9 g/dL (32.4-35.8); MEAN CORPUSCULAR VOLUME 76.7 fL (80-100); MEAN PLATELET VOLUME 8.5 fL (7.4-10.4); PLATELET COUNT 188 x10^3/uL (130-400); RED BLOOD COUNT 3.29 x10^6/uL (3.82-5.3); RED CELL DISTRIBUTION WIDTH 19.5 % (9.6-15.2)
[2018-03-07 05:48] LABS: BASOPHILS # (AUTO) 0.01 x10^3/uL (0-0.1); BASOPHILS % (AUTO) 0 % (0-1); EOSINOPHILS # (AUTO) 0.21 x10^3/uL (0-0.4); EOSINOPHILS % (AUTO) 7 % (1-7); LYMPHOCYTES # (AUTO) 0.35 x10^3/uL (1-3.4); LYMPHOCYTES % (AUTO) 12 % (22-44); MD SCAN; MONOCYTES # (AUTO) 0.34 x10^3/uL (0.2-0.8); MONOCYTES % (AUTO) 12 % (2-9); NEUTROPHILS # (AUTO) 1.96 x10^3/uL (1.8-6.8); NEUTROPHILS % (AUTO) 69 % (42-75)
[2018-03-07] MEDS: CHOLECALCIFEROL 400 UNITS TABLET PO SCH ×2 (08:02→20:42)
[2018-03-07] MEDS: GABAPENTIN 100 MG CAPSULE PO SCH ×3 (08:02→20:43)
[2018-03-07] MEDS: CALCIUM CARBONATE 500 MG TAB.CHEW PO SCH ×2 (08:02→20:43)
[2018-03-07] MEDS: ENOXAPARIN 40 MG/0.4 ML SQ SCH (08:03)
[2018-03-07] MEDS: SENNA/DOCUSATE TABLET PO SCH (08:03)
[2018-03-07] MEDS: METOPROLOL TARTRATE 25 MG TABLET PO SCH (08:04)
[2018-03-07] MEDS: SODIUM CHLORIDE FLUSH 10ML SYR IVF SCH ×2 (08:04→20:42)
[2018-03-07 08:05] VITALS: BP 113/74
[2018-03-07] MEDS: METHYLNALTREXONE 12 MG/0.6 ML SQ SCH (11:00)
[2018-03-07 13:13] VITALS: BP 108/72
[2018-03-07] MEDS ORDERED: HYDROmorphone 2 MG/ML, 1ML ONE (14:39)
[2018-03-07] MEDS: HYDROmorphone 1 MG/ML, 1ML IV PRN (14:42)
[2018-03-07 19:05] VITALS: BP 125/78
[2018-03-07] MEDS: ATORVASTATIN 80 MG TABLET PO SCH (20:43)
[2018-03-08 01:42] VITALS: BP 114/73
[2018-03-08] MEDS: OXYcodone IR 5MG TABLET PO PRN ×5 (02:12→20:52)
[2018-03-08] MEDS: CEFAZOLIN PMX 2GM/50ML 50 ML IVPB SCH ×3 (04:58→20:53)
[2018-03-08 07:08] VITALS: BP 120/81
[2018-03-08] MEDS: SODIUM CHLORIDE FLUSH 10ML SYR IVF SCH ×2 (07:51→20:53)
[2018-03-08] MEDS: CEFAZOLIN PMX 1GM/50ML 50 ML IVPB SCH ×2 (07:51→15:53)
[2018-03-08] MEDS: CHOLECALCIFEROL 400 UNITS TABLET PO SCH ×2 (10:14→22:49)
[2018-03-08] MEDS: SENNA/DOCUSATE TABLET PO SCH (10:15)
[2018-03-08] MEDS: METOPROLOL TARTRATE 25 MG TABLET PO SCH (10:15)
[2018-03-08] MEDS: ENOXAPARIN 40 MG/0.4 ML SQ SCH (10:15)
[2018-03-08] MEDS: CALCIUM CARBONATE 500 MG TAB.CHEW PO SCH ×2 (10:15→20:52)
[2018-03-08] MEDS: GABAPENTIN 100 MG CAPSULE PO SCH ×3 (10:15→20:52)
[2018-03-08] MEDS: MAGNESIUM HYDROXIDE 8%, 30ML UDC PO SCH (10:20)
[2018-03-08 14:12] VITALS: BP 108/78
[2018-03-08 19:45] VITALS: BP 98/68
[2018-03-08] MEDS: ATORVASTATIN 80 MG TABLET PO SCH (20:52)
[2018-03-09] MEDS: CEFAZOLIN PMX 1GM/50ML 50 ML IVPB SCH ×4 (00:10→23:53)
[2018-03-09] MEDS ORDERED: HYDROmorphone 2 MG/ML, 1ML ONE (00:17)
[2018-03-09] MEDS: HYDROmorphone 1 MG/ML, 1ML IV PRN (00:20)
[2018-03-09 02:43] VITALS: BP 97/69
[2018-03-09] MEDS: OXYcodone IR 5MG TABLET PO PRN ×5 (05:32→21:34)
[2018-03-09] MEDS: CEFAZOLIN PMX 2GM/50ML 50 ML IVPB SCH ×3 (05:32→21:24)
[2018-03-09 05:36] LABS: HCT (SEDRATE) 26.5 % (34.6-47.8)
[2018-03-09 06:17] LABS: CREATININE 0.55 mg/dL (0.55-1.02)
[2018-03-09 07:31] VITALS: BP 95/60
[2018-03-09] MEDS: SODIUM CHLORIDE FLUSH 10ML SYR IVF SCH ×2 (08:18→21:34)
[2018-03-09] MEDS: CALCIUM CARBONATE 500 MG TAB.CHEW PO SCH ×2 (08:19→21:24)
[2018-03-09] MEDS: METOPROLOL TARTRATE 25 MG TABLET PO SCH (08:19)
[2018-03-09] MEDS: CHOLECALCIFEROL 400 UNITS TABLET PO SCH ×2 (08:19→21:24)
[2018-03-09] MEDS: MAGNESIUM HYDROXIDE 8%, 30ML UDC PO SCH (08:19)
[2018-03-09] MEDS: SENNA/DOCUSATE TABLET PO SCH (08:19)
[2018-03-09] MEDS: GABAPENTIN 100 MG CAPSULE PO SCH ×3 (08:19→21:24)
[2018-03-09] MEDS: ENOXAPARIN 40 MG/0.4 ML SQ SCH (08:20)
[2018-03-09] MEDS: METHYLNALTREXONE 12 MG/0.6 ML SQ SCH (08:20)
[2018-03-09 13:28] VITALS: BP 116/78
[2018-03-09 19:30] VITALS: BP 96/61
[2018-03-09] MEDS: ATORVASTATIN 80 MG TABLET PO SCH (21:24)
[2018-03-10 02:18] VITALS: BP 94/56
[2018-03-10] MEDS: CEFAZOLIN PMX 2GM/50ML 50 ML IVPB SCH ×3 (04:35→21:58)
[2018-03-10] MEDS: OXYcodone IR 5MG TABLET PO PRN ×5 (04:35→21:58)
[2018-03-10] MEDS: ACETAMINOPHEN 325 MG TABLET PO PRN ×2 (04:35→21:58)
[2018-03-10 04:51] LABS: BASOPHILS # (AUTO) 0.02 x10^3/uL (0-0.1); BASOPHILS % (AUTO) 1 % (0-1); EOSINOPHILS # (AUTO) 0.26 x10^3/uL (0-0.4); EOSINOPHILS % (AUTO) 9 % (1-7); LYMPHOCYTES # (AUTO) 0.38 x10^3/uL (1-3.4); LYMPHOCYTES % (AUTO) 13 % (22-44); MD NO; MEAN CORPUSCULAR HEMOGLOBIN 24.8 pg (27.0-34.8); MEAN CORPUSCULAR HGB CONC 32.4 g/dL (32.4-35.8); MEAN CORPUSCULAR VOLUME 76.7 fL (80-100); MEAN PLATELET VOLUME 8.4 fL (7.4-10.4); MONOCYTES # (AUTO) 0.34 x10^3/uL (0.2-0.8); MONOCYTES % (AUTO) 11 % (2-9); NEUTROPHILS # (AUTO) 2.03 x10^3/uL (1.8-6.8); NEUTROPHILS % (AUTO) 67 % (42-75); PLATELET COUNT 199 x10^3/uL (130-400); RED BLOOD COUNT 3.33 x10^6/uL (3.82-5.3)
[2018-03-10 06:32] VITALS: BP 121/80
[2018-03-10] MEDS: ENOXAPARIN 40 MG/0.4 ML SQ SCH (08:28)
[2018-03-10] MEDS: MAGNESIUM HYDROXIDE 8%, 30ML UDC PO SCH (08:28)
[2018-03-10] MEDS: METOPROLOL TARTRATE 25 MG TABLET PO SCH (08:28)
[2018-03-10] MEDS: CEFAZOLIN PMX 1GM/50ML 50 ML IVPB SCH ×2 (08:28→16:07)
[2018-03-10] MEDS: CALCIUM CARBONATE 500 MG TAB.CHEW PO SCH ×2 (08:29→21:57)
[2018-03-10] MEDS: GABAPENTIN 100 MG CAPSULE PO SCH ×3 (08:29→21:57)
[2018-03-10] MEDS: SODIUM CHLORIDE FLUSH 10ML SYR IVF SCH ×2 (08:29→21:56)
[2018-03-10] MEDS: CHOLECALCIFEROL 400 UNITS TABLET PO SCH ×2 (08:29→21:57)
[2018-03-10] MEDS: SENNA/DOCUSATE TABLET PO SCH (08:29)
[2018-03-10 12:31] VITALS: BP 126/77
[2018-03-10 19:30] VITALS: BP 111/71
[2018-03-10] MEDS: ATORVASTATIN 80 MG TABLET PO SCH (21:57)
[2018-03-11] MEDS: CEFAZOLIN PMX 1GM/50ML 50 ML IVPB SCH ×4 (00:02→23:43)
[2018-03-11] MEDS: ACETAMINOPHEN 325 MG TABLET PO PRN ×3 (01:53→21:24)
[2018-03-11] MEDS: OXYcodone IR 5MG TABLET PO PRN ×6 (01:54→22:46)
[2018-03-11 02:28] VITALS: BP 108/70
[2018-03-11] MEDS: CEFAZOLIN PMX 2GM/50ML 50 ML IVPB SCH ×3 (06:01→21:24)
[2018-03-11 07:03] VITALS: BP 95/63
[2018-03-11] MEDS: MAGNESIUM HYDROXIDE 8%, 30ML UDC PO SCH (08:07)
[2018-03-11] MEDS: GABAPENTIN 100 MG CAPSULE PO SCH ×3 (08:07→21:25)
[2018-03-11] MEDS: CALCIUM CARBONATE 500 MG TAB.CHEW PO SCH ×2 (08:08→21:24)
[2018-03-11] MEDS: SENNA/DOCUSATE TABLET PO SCH (08:08)
[2018-03-11] MEDS: ENOXAPARIN 40 MG/0.4 ML SQ SCH (08:08)
[2018-03-11] MEDS: METOPROLOL TARTRATE 25 MG TABLET PO SCH (08:08)
[2018-03-11] MEDS: METHYLNALTREXONE 12 MG/0.6 ML SQ SCH (08:09)
[2018-03-11] MEDS: SODIUM CHLORIDE FLUSH 10ML SYR IVF SCH ×2 (08:09→21:24)
[2018-03-11] MEDS: CHOLECALCIFEROL 400 UNITS TABLET PO SCH ×2 (08:15→21:24)
[2018-03-11] MEDS ORDERED: OMNIPAQUE 350 MG/ML, 75ML BOTTLE ONE (09:33)
[2018-03-11 13:07] VITALS: BP 103/57
[2018-03-11 20:00] VITALS: BP 110/71
[2018-03-11] MEDS: ATORVASTATIN 80 MG TABLET PO SCH (21:25)
[2018-03-12 02:41] VITALS: BP 101/65
[2018-03-12] MEDS: OXYcodone IR 5MG TABLET PO PRN ×5 (03:32→21:04)
[2018-03-12] MEDS: ACETAMINOPHEN 325 MG TABLET PO PRN (03:32)
[2018-03-12] MEDS: CEFAZOLIN PMX 2GM/50ML 50 ML IVPB SCH ×3 (05:46→23:02)
[2018-03-12] MEDS ORDERED: CATHFLO-ALTEPLASE 2 MG/2 ML CATHFLUSH ONE (06:00)
[2018-03-12 06:23] LABS: BASOPHILS # (AUTO) 0.01 x10^3/uL (0-0.1); BASOPHILS % (AUTO) 0 % (0-1); EOSINOPHILS # (AUTO) 0.24 x10^3/uL (0-0.4); EOSINOPHILS % (AUTO) 7 % (1-7); LYMPHOCYTES # (AUTO) 0.38 x10^3/uL (1-3.4); LYMPHOCYTES % (AUTO) 11 % (22-44); MD NO; MEAN CORPUSCULAR HEMOGLOBIN 24.3 pg (27.0-34.8); MEAN CORPUSCULAR HGB CONC 31.4 g/dL (32.4-35.8); MEAN CORPUSCULAR VOLUME 77.4 fL (80-100); MEAN PLATELET VOLUME 8.2 fL (7.4-10.4); MONOCYTES # (AUTO) 0.37 x10^3/uL (0.2-0.8); MONOCYTES % (AUTO) 11 % (2-9); NEUTROPHILS % (AUTO) 71 % (42-75); PLATELET COUNT 204 x10^3/uL (130-400); RED BLOOD COUNT 3.66 x10^6/uL (3.82-5.3); RED CELL DISTRIBUTION WIDTH 19.1 % (9.6-15.2)
[2018-03-12 06:36] LABS: ALBUMIN 2.4 g/dL (3.4-5.0); ANION GAP 5 mmol/L (5-15); CALCIUM 9.2 mg/dL (8.5-10.1); CHLORIDE 106 mmol/L (98-107)
[2018-03-12 06:38] LABS: ALANINE AMINOTRANSFERASE 7 U/L (12-78); ALKALINE PHOSPHATASE 141 U/L (45-117); BILIRUBIN,TOTAL 0.3 mg/dL (0.2-1.0); CREATININE 0.66 mg/dL (0.55-1.02); TOTAL PROTEIN 7.5 g/dL (6.4-8.2)
[2018-03-12 06:48] VITALS: BP 107/68
[2018-03-12] MEDS: SODIUM CHLORIDE FLUSH 10ML SYR IVF SCH ×2 (08:03→21:04)
[2018-03-12] MEDS: METOPROLOL TARTRATE 25 MG TABLET PO SCH (08:03)
[2018-03-12] MEDS: CEFAZOLIN PMX 1GM/50ML 50 ML IVPB SCH ×3 (08:03→19:34)
[2018-03-12] MEDS: GABAPENTIN 100 MG CAPSULE PO SCH ×3 (08:04→21:04)
[2018-03-12] MEDS: CHOLECALCIFEROL 400 UNITS TABLET PO SCH ×2 (08:04→21:04)
[2018-03-12] MEDS: ENOXAPARIN 40 MG/0.4 ML SQ SCH (08:04)
[2018-03-12] MEDS: SENNA/DOCUSATE TABLET PO SCH (08:04)
[2018-03-12] MEDS: CALCIUM CARBONATE 500 MG TAB.CHEW PO SCH ×2 (08:04→21:04)
[2018-03-12] MEDS: MAGNESIUM HYDROXIDE 8%, 30ML UDC PO SCH (08:08)
[2018-03-12] MEDS ORDERED: METHYLNALTREXONE 12 MG/0.6 ML SQ SCH (09:00)
[2018-03-12] MEDS ORDERED: PHARMACY INSTRUCTION MC ONE (11:30)
[2018-03-12] MEDS ORDERED: GENTAMICIN IV SCH (12:00)
[2018-03-12] MEDS ORDERED: SODIUM CHLORIDE 0.9% IV SCH (12:00)
[2018-03-12] MEDS ORDERED: NEOMYCIN IV SCH (12:00)
[2018-03-12] MEDS ORDERED: POLYMYXIN B IV SCH (12:00)
[2018-03-12 13:04] VITALS: BP 109/75
[2018-03-12] MEDS ORDERED: morphine SULFATE 10 MG/ML, 1ML IV ONE (13:30)
[2018-03-12 20:37] VITALS: BP 104/69
[2018-03-12] MEDS: ATORVASTATIN 80 MG TABLET PO SCH (21:04)
[2018-03-13] MEDS: OXYcodone IR 5MG TABLET PO PRN ×5 (01:04→17:48)
[2018-03-13 01:10] VITALS: BP 114/69
[2018-03-13] MEDS: CEFAZOLIN PMX 2GM/50ML 50 ML IVPB SCH ×2 (06:50→15:00)
[2018-03-13] MEDS: CEFAZOLIN PMX 1GM/50ML 50 ML IVPB SCH (07:09)
[2018-03-13 07:34] VITALS: BP 108/69
[2018-03-13] MEDS: SODIUM CHLORIDE FLUSH 10ML SYR IVF SCH (09:36)
[2018-03-13] MEDS: ENOXAPARIN 40 MG/0.4 ML SQ SCH (09:37)
[2018-03-13] MEDS: MAGNESIUM HYDROXIDE 8%, 30ML UDC PO SCH (09:37)
[2018-03-13] MEDS: SENNA/DOCUSATE TABLET PO SCH (09:37)
[2018-03-13] MEDS: CHOLECALCIFEROL 400 UNITS TABLET PO SCH (09:37)
[2018-03-13] MEDS: CALCIUM CARBONATE 500 MG TAB.CHEW PO SCH (09:37)
[2018-03-13] MEDS: GABAPENTIN 100 MG CAPSULE PO SCH ×2 (09:37→15:00)
[2018-03-13] MEDS: METOPROLOL TARTRATE 25 MG TABLET PO SCH (09:38)
[2018-03-13] MEDS ORDERED: HYDROmorphone 2 MG/ML, 1ML ONE (12:46)
[2018-03-13] MEDS: HYDROmorphone 1 MG/ML, 1ML IV PRN (12:49)
[2018-03-13] MEDS ORDERED: ENOX40SY4 SQ (13:04)
[2018-03-13] MEDS ORDERED: CALC200T24 PO (13:04)
[2018-03-13] MEDS ORDERED: SENN1TAB8 PO (13:04)
[2018-03-13] MEDS ORDERED: CHOL400T2 PO (13:04)
[2018-03-13] MEDS ORDERED: ACET325T14 PO (13:04)
[2018-03-13] MEDS ORDERED: CEFA2PLA9 IV (13:07)
[2018-03-13 13:44] VITALS: BP 105/64
[2018-03-13 18:09] VITALS: BP 106/72
== END 2018-03-13 18:15 | DRG 862 ==
LOC: 4NOR 16:56
PROVIDERS: ADMIT Internal Medicine; ATTEND Internal Medicine
PROC: 0W9930Z Drainage of Right Pleural Cavity with Drainage Device, Percutaneous Approach (ICD-10-PCS; principal; 2018-03-01)
PROC: 0WP8X0Z Removal of Drainage Device from Chest Wall, External Approach (ICD-10-PCS; 2018-03-12)
PROC: 3E0L329 Introduction of Other Anti-infective into Pleural Cavity, Percutaneous Approach (ICD-10-PCS; 2018-03-12)
DX: T81.43XA Infection following a procedure, organ and space surgical site, initial encounter (principal); J86.0 Pyothorax with fistula; J94.2 Hemothorax; L02.213 Cutaneous abscess of chest wall; E78.5 Hyperlipidemia, unspecified; I11.9 Hypertensive heart disease without heart failure; D50.9 Iron deficiency anemia, unspecified; D72.819 Decreased white blood cell count, unspecified; F41.9 Anxiety disorder, unspecified; G89.29 Other chronic pain; I48.91 Unspecified atrial fibrillation; K59.00 Constipation, unspecified; Z79.2 Long term (current) use of antibiotics; Z82.3 Family history of stroke; Z85.118 Personal history of other malignant neoplasm of bronchus and lung; Z86.19 Personal history of other infectious and parasitic diseases; Z87.891 Personal history of nicotine dependence; Z90.2 Acquired absence of lung [part of]
CPT/HCPCS: 32557; 36415; 49405; 71046; 71250; 71260; 80048; 80053; 82565; 85025; 85610; 85651; 86140; 87070; 87075; 87205; 99156; 99157; G0378; J0690; J1170; J1650; J2250; J2997; J3010; Q9967; C1729; C1769; J2270; J2310

== ENCOUNTER 2019-08-04 11:45 | Outpatient (CLI) | payer MEDICARE, MEDICAID ==
[~2019-08-04 11:45] MED LIST changes: +CALC200T24 PO; +CEFA2PLA9 IV; +CHOL400T2 PO; +ENOX40SY4 SQ; +OMEP40CA42 PO; -OMEP40CA6 PO; +SENN-177 PO
== END 2019-08-04 23:59 | disposition home or self-care (01) ==
LOC: CFH 11:45
PROVIDERS: ATTEND Physician Assistant Medical
DX: I08.1 Rheumatic disorders of both mitral and tricuspid valves (principal); I31.3 Pericardial effusion (noninflammatory)
CPT/HCPCS: 93306

== ENCOUNTER 2019-09-30 13:23 | Emergency (ER) | payer MEDICARE, MEDICAID ==
[~2019-09-30] VITALS: Ht 167.6 cm; Wt 55.3 kg
[~2019-09-30 13:23] MED LIST changes: +ACID1TAB7 PO; +ATOR20TA86 PO; +CARV6.2512 PO; +CEPH-376 PO; +DEXA4TAB66 PO
[2019-09-30 14:17] LABS: BASOPHILS % (AUTO) 0 % (0-1); EOSINOPHILS # (AUTO) 0.02 x10^3/uL (0-0.4); EOSINOPHILS % (AUTO) 0 % (1-7); LYMPHOCYTES # (AUTO) 0.42 x10^3/uL (1-3.4); LYMPHOCYTES % (AUTO) 4 % (22-44); MD NO; MEAN CORPUSCULAR HEMOGLOBIN 26.1 pg (27.0-34.8); MEAN CORPUSCULAR HGB CONC 30.9 g/dL (32.4-35.8); MEAN PLATELET VOLUME 9.3 fL (7.4-10.4); MONOCYTES # (AUTO) 0.54 x10^3/uL (0.2-0.8); MONOCYTES % (AUTO) 5 % (2-9); NEUTROPHILS # (AUTO) 9.26 x10^3/uL (1.8-6.8); NEUTROPHILS % (AUTO) 90 % (42-75); PLATELET COUNT 195 x10^3/uL (130-400); RED BLOOD COUNT 4.54 x10^6/uL (3.82-5.3); RED CELL DISTRIBUTION WIDTH 21.3 % (9.6-15.2)
[2019-09-30 14:20] LABS: ALBUMIN 3.3 g/dL (3.4-5.0); ANION GAP 8 mmol/L (5-15); CALCIUM 9.3 mg/dL (8.5-10.1); CHLORIDE 109 mmol/L (98-107)
[2019-09-30 14:25] LABS: TROPONIN I < 0.015 ng/mL (0.000-0.045)
[2019-09-30 14:30] VITALS: BP 133/78
--- NOTE | 2019-09-30 14:40 | NUR ---
PT RESTING IN BED WITH PT FRIEND AT PT SIDE. PT A/O X4 WITH UNLABORED BREATHING. NO MEDS DUE AT THIS TIME. REGIONAL BUSINESS MANAGER WILL MONITOR PT VSS
== END 2019-09-30 16:04 | disposition home or self-care (01) ==
LOC: ED 15:17
DX: S20.219A Contusion of unspecified front wall of thorax, initial encounter (principal); R60.0 Localized edema; R30.0 Dysuria; Z90.710 Acquired absence of both cervix and uterus; Z87.891 Personal history of nicotine dependence; Z85.118 Personal history of other malignant neoplasm of bronchus and lung; X58.XXXA Exposure to other specified factors, initial encounter; Y93.89 Activity, other specified; Y92.89 Other specified places as the place of occurrence of the external cause; Y99.8 Other external cause status
CPT/HCPCS: 36415; 71045; 80048; 82040; 84484; 85025; 93005; 99285

== ENCOUNTER → 2019-10-13 | Outpatient (CLI) | payer MEDICARE, MEDICAID ==
[~2019-10-13] MED LIST changes: +ALPRazolam 1MG TAB ONE; +GADOTERATE 7.5 MMOL/15 ML SYR ONE
== END | disposition home or self-care (01) ==
LOC: RAD 10:52 → EDSTATUS 11:15
PROVIDERS: ATTEND Radiology Radiation Oncology
DX: C79.31 Secondary malignant neoplasm of brain (principal); R60.0 Localized edema; J01.00 Acute maxillary sinusitis, unspecified
CPT/HCPCS: 70553; A9575

== ENCOUNTER 2019-11-22 19:01 | Inpatient (IN) | payer MEDICARE, MEDICAID ==
[~2019-11-22] VITALS: Ht 167.6 cm; Wt 61.1 kg
[~2019-11-22 19:01] MED LIST changes: -ALPRazolam 1MG TAB ONE; -GADOTERATE 7.5 MMOL/15 ML SYR ONE
--- NOTE | 2019-11-22 19:11 | NUR ---
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 "I CANT GET UP TO WALK AND MY LEFT SIDE IS SWOLLEN AND I CANT BE LEFT ALONE BY MYSELF BECAUSE I FALL" DIFFICULTY WALKING STARTED 4-5 DAYS AGO. DENIES PAIN.
[2019-11-22 19:25] LABS: BASOPHILS # (AUTO) 0.01 x10^3/uL (0-0.1); BASOPHILS % (AUTO) 0 % (0-1); EOSINOPHILS # (AUTO) 0.07 x10^3/uL (0-0.4); EOSINOPHILS % (AUTO) 2 % (1-7); LYMPHOCYTES # (AUTO) 0.43 x10^3/uL (1-3.4); LYMPHOCYTES % (AUTO) 9 % (22-44); MD NO; MEAN CORPUSCULAR HEMOGLOBIN 28.3 pg (27.0-34.8); MEAN CORPUSCULAR HGB CONC 32.2 g/dL (32.4-35.8); MEAN PLATELET VOLUME 8.1 fL (7.4-10.4); MONOCYTES # (AUTO) 0.37 x10^3/uL (0.2-0.8); MONOCYTES % (AUTO) 7 % (2-9); NEUTROPHILS # (AUTO) 4.15 x10^3/uL (1.8-6.8); NEUTROPHILS % (AUTO) 82 % (42-75); PLATELET COUNT 195 x10^3/uL (130-400); RED BLOOD COUNT 4.15 x10^6/uL (3.82-5.3)
[2019-11-22 19:37] LABS: ALANINE AMINOTRANSFERASE 30 U/L (12-78); ALBUMIN 2.9 g/dL (3.4-5.0); ANION GAP 8 mmol/L (5-15); CALCIUM 9.2 mg/dL (8.5-10.1); CHLORIDE 112 mmol/L (98-107); CREATININE 0.73 mg/dL (0.55-1.02)
[2019-11-22 19:42] LABS: ALKALINE PHOSPHATASE 88 U/L (45-117); BILIRUBIN,TOTAL 0.2 mg/dL (0.2-1.0); TOTAL PROTEIN 6.8 g/dL (6.4-8.2); TROPONIN I < 0.015 ng/mL (0.000-0.045)
[2019-11-22] MEDS ORDERED: MONT10TA11 PO (20:09)
[2019-11-22] MEDS ORDERED: BUDE10.2 INH (20:09)
[2019-11-22] MEDS ORDERED: MULT-717 PO (20:10)
--- NOTE | 2019-11-22 20:10 | NUR ---
PT STATES THAT SHE DOESNT WANT TO KNOW THE RESULTS FROM HER HEAD CT SCAN BECUASE SHE KNOWS THAT THE CANCER WILL BE WORSE. SHE SAYS SHE KNOWS SHE IS DYING OF CANCER AND "WHEN ITS MY TIME, ITS MY TIME, AND I DONT WANT TO KNOW WHEN ITS GOING TO BE" SHE ASKED ME TO CALL THE RESULTS TO HER SISTER WHO IS HER POWER OF [employer]CH[employer] INSERTER AND SHARE THE RESULTS WITH HER INSTEAD. I RELAYED THE PT REQUESTS TO DR PENNINGTON.
[2019-11-22] MEDS ORDERED: DEXAMETHASONE 4 MG/ML, 1ML ONE (20:42)
[2019-11-22] MEDS ORDERED: DEXAMETHASONE 4 MG/ML, 1ML IVPush ONE (21:00)
--- NOTE | 2019-11-22 21:28 | NUR ---
REPORT TO SHLOMO MCCARTNEY
[2019-11-22] MEDS ORDERED: ONDANSETRON 2MG/ML, 2ML IVPush PRN (22:00)
[2019-11-22] MEDS ORDERED: ENALAPRILAT 1.25 MG/ML, 2ML IVPush PRN (22:00)
[2019-11-22] MEDS ORDERED: POLYETHYLENE GLYCOL 17 GM PACKET PO PRN (22:00)
[2019-11-22 22:12] VITALS: BP 132/57
[2019-11-22] MEDS: HYDROcodone/APAP 10/325 MG TABLET PO SCH (23:10)
[2019-11-22] MEDS: CEPHALEXIN 500 MG CAPSULE PO SCH (23:10)
[2019-11-23 02:35] VITALS: BP 123/85
[2019-11-23] MEDS: DEXAMETHASONE 4 MG/ML, 1ML IVPush SCH ×4 (03:26→22:04)
[2019-11-23] MEDS: OMEPRAZOLE 20 MG CAPSULE.DR PO SCH (06:15)
[2019-11-23] MEDS: CARVEDILOL 6.25 MG TABLET PO SCH ×2 (06:15→18:30)
[2019-11-23 06:35] VITALS: BP 139/95
[2019-11-23] MEDS: HYDROcodone/APAP 10/325 MG TABLET PO SCH ×3 (06:47→19:33)
[2019-11-23] MEDS: Symbicort 160-4.5 Mcg Inhaler INH SCH ×3 (10:37→12:35)
[2019-11-23] MEDS: FLUTICASONE/VILANTEROL 100-25MCG/INH INH SCH ×2 (10:38→18:33)
[2019-11-23] MEDS: ENOXAPARIN 40 MG/0.4 ML SQ SCH (10:39)
[2019-11-23] MEDS: MONTELUKAST 10 MG TABLET PO SCH (10:48)
[2019-11-23] MEDS: CEPHALEXIN 500 MG CAPSULE PO SCH ×3 (10:48→19:32)
[2019-11-23] MEDS: SENNA/DOCUSATE TABLET PO SCH (10:49)
[2019-11-23 12:06] VITALS: BP 133/79
[2019-11-23] MEDS: ALBUTEROL-IPRATROPIUM MDI INH INH PRN ×2 (12:29→19:33)
[2019-11-23] MEDS: ATORVASTATIN 80 MG TABLET PO SCH (19:32)
[2019-11-23 19:42] VITALS: BP 126/83
[2019-11-24 02:45] VITALS: BP 104/68
[2019-11-24] MEDS: DEXAMETHASONE 4 MG/ML, 1ML IVPush SCH ×4 (04:12→23:11)
[2019-11-24] MEDS: HYDROcodone/APAP 10/325 MG TABLET PO SCH ×3 (06:19→18:11)
[2019-11-24] MEDS: OMEPRAZOLE 20 MG CAPSULE.DR PO SCH (06:19)
[2019-11-24] MEDS: CARVEDILOL 6.25 MG TABLET PO SCH ×2 (06:19→17:23)
[2019-11-24] MEDS: Symbicort 160-4.5 Mcg Inhaler INH SCH (07:48)
[2019-11-24] MEDS: FLUTICASONE/VILANTEROL 100-25MCG/INH INH SCH (08:07)
[2019-11-24] MEDS: ENOXAPARIN 40 MG/0.4 ML SQ SCH (08:08)
[2019-11-24] MEDS: MONTELUKAST 10 MG TABLET PO SCH (08:08)
[2019-11-24] MEDS: CEPHALEXIN 500 MG CAPSULE PO SCH ×3 (08:08→20:42)
[2019-11-24] MEDS: SENNA/DOCUSATE TABLET PO SCH (08:08)
[2019-11-24 09:28] VITALS: BP 111/77
[2019-11-24 13:45] VITALS: BP 123/83
[2019-11-24 18:46] VITALS: BP 129/60
[2019-11-24] MEDS: ATORVASTATIN 80 MG TABLET PO SCH (20:42)
[2019-11-25 00:47] VITALS: BP 132/84
[2019-11-25] MEDS: OMEPRAZOLE 20 MG CAPSULE.DR PO SCH (04:55)
[2019-11-25] MEDS: CARVEDILOL 6.25 MG TABLET PO SCH ×2 (04:55→17:11)
[2019-11-25] MEDS: DEXAMETHASONE 4 MG/ML, 1ML IVPush SCH ×4 (04:55→22:55)
[2019-11-25] MEDS ORDERED: HYDROcodone/APAP 10/325 MG TABLET PO SCH (05:00)
[2019-11-25 06:17] VITALS: BP 129/83
[2019-11-25] MEDS: FLUTICASONE/VILANTEROL 100-25MCG/INH INH SCH (08:47)
[2019-11-25] MEDS: Symbicort 160-4.5 Mcg Inhaler INH SCH (10:05)
[2019-11-25] MEDS: CEPHALEXIN 500 MG CAPSULE PO SCH ×3 (10:10→22:55)
[2019-11-25] MEDS: ENOXAPARIN 40 MG/0.4 ML SQ SCH (10:10)
[2019-11-25] MEDS: SENNA/DOCUSATE TABLET PO SCH (10:10)
[2019-11-25] MEDS: MONTELUKAST 10 MG TABLET PO SCH (10:11)
[2019-11-25] MEDS: HYDROcodone/APAP 10/325 MG TABLET PO PRN ×3 (11:01→22:55)
[2019-11-25 13:28] VITALS: BP 126/85
[2019-11-25 18:59] VITALS: BP 130/82
[2019-11-25] MEDS: ATORVASTATIN 80 MG TABLET PO SCH (22:55)
[2019-11-26] MEDS: HYDROcodone/APAP 10/325 MG TABLET PO PRN ×2 (05:02→11:14)
[2019-11-26] MEDS: OMEPRAZOLE 20 MG CAPSULE.DR PO SCH (05:02)
[2019-11-26] MEDS: CARVEDILOL 6.25 MG TABLET PO SCH ×2 (05:02→17:06)
[2019-11-26] MEDS: DEXAMETHASONE 4 MG/ML, 1ML IVPush SCH ×3 (05:04→17:06)
[2019-11-26 07:45] VITALS: BP 119/74
[2019-11-26] MEDS: CEPHALEXIN 500 MG CAPSULE PO SCH ×2 (08:24→17:06)
[2019-11-26] MEDS: MONTELUKAST 10 MG TABLET PO SCH (08:24)
[2019-11-26] MEDS: SENNA/DOCUSATE TABLET PO SCH (08:24)
[2019-11-26] MEDS: FLUTICASONE/VILANTEROL 100-25MCG/INH INH SCH (08:24)
[2019-11-26] MEDS: ACETAMINOPHEN 325 MG TABLET PO PRN ×2 (08:25→14:30)
[2019-11-26] MEDS: ENOXAPARIN 40 MG/0.4 ML SQ SCH (08:25)
[2019-11-26] MEDS: Symbicort 160-4.5 Mcg Inhaler INH SCH (08:26)
[2019-11-26 12:06] VITALS: BP 125/66
[2019-11-26] MEDS ORDERED: DEXA4TAB66 PO (16:57)
[2019-11-26] MEDS ORDERED: METH8TAB5 PO (17:16)
== END 2019-11-26 18:35 | DRG 54 ==
LOC: ED 20:09 → EDIP 21:58 → 4NW 22:01
PROVIDERS: ADMIT Family Medicine; ATTEND Family Medicine
DX: C79.31 Secondary malignant neoplasm of brain (principal); G93.6 Cerebral edema; E43 Unspecified severe protein-calorie malnutrition; F11.20 Opioid dependence, uncomplicated; J44.0 Chronic obstructive pulmonary disease with (acute) lower respiratory infection; E78.5 Hyperlipidemia, unspecified; G89.4 Chronic pain syndrome; I10 Essential (primary) hypertension; J32.0 Chronic maxillary sinusitis; R13.12 Dysphagia, oropharyngeal phase; Z92.3 Personal history of irradiation; Z90.710 Acquired absence of both cervix and uterus; Z87.891 Personal history of nicotine dependence; Z85.118 Personal history of other malignant neoplasm of bronchus and lung; Z82.3 Family history of stroke; Z79.2 Long term (current) use of antibiotics; Z66 Do not resuscitate; W18.30XA Fall on same level, unspecified, initial encounter; K59.09 Other constipation; Z68.21 Body mass index [BMI] 21.0-21.9, adult
CPT/HCPCS: 36415; 70450; 80053; 84484; 85025; 93005; 94640; 96374; G0378; J1100; J1650; 92523-GN